=== PATIENT | female | born 1990 | race Native Hawaiian/Other Pacific Islander ===

== ENCOUNTER 2017-10-13 07:48 | Inpatient (IN) | payer BC ==
[2017-10-13 08:01] VITALS: BMI 25.0
[2017-10-13] MEDS: Lactated Ringer's 1,000 ML IV SCH ×2 (09:30→15:00)
--- NOTE | 2017-10-13 09:30 | OBHP ---
Datetime: 10/13/2017 08:15 IP Adm Impression: Term, intrauterine ; No Active Labor; Intact Membranes IP Admit Plan: Observation/Evaluation Admit Comment, IP Provider: 26 yo EGA 38.2 based on LMP of 01/18/2018 presents with vaginal ble ed. Pt reports that approximately 2 hours prior to presentation, she wiped after urinating and saw br ight red blood. After, she applied a vaginal pad, which also revealed bright red blood coin sized, mi xed with mucous. She reports recent intercouse, yesterday. She also reported some decreased movement Reports: FM; Denies: ctx, lof ros: denies: dizziness, headache, blurred vision, CP/SOB/N/V/D/C, dysuria PNC: Dr. Up; denies any complications with current pmhx: none famhx: dm soc: lives with , Denies: smoking, alcohol, illicit drugs Surg: none Allergies: venancio, seafood, cat: hives Gen; aaox3 in no acute distress cardiac: S1S2 no murmurs Lungs: cta bilaterally abdomen: gravid, nontender Gait: ambulates without difficulty 26 yo IUP 38.2 based on LMP -FHT -observe for vaginal bleed case dw OB attending Ravinder Maldonado MD PGY1 Addendum: I saw and examined patient. Patient reports noticing small amount of blood early this morning. Patient also reports occasional ly feeling contractions. Patient denied any leakage of fluids. At this time, patient reports good fet al movement. On exam, cervix 2/50/-3 with no bleeding noted. heart tracing reactive with good baseline va riability and positive accelerations. Plan to observe patient for any signs of active labor. We will reevaluate. [place] Pelvic Type - PN: Not Done Extremities - PN: Normal Abdomen - PN: Normal Back - PN: Normal Breast - PN: Normal Lungs - PN: Normal Heart - PN: Normal Thyroid - PN: Not Done Neurologic - PN: Normal HEENT - PN: Normal General - PN: Normal FHR - Baseline A Provider: 140 EGA AdmitDate IP: 38.2 Vital Signs Provider: Reviewed; Within Normal Limits IP Chief Complaint: Vaginal bleeding NICHD Variability Prov Fetus A: Moderate 6-25bpm NICHD Accel Fetus A IP Provider: [id number] FHR Category Provider Fetus A: Category I NICHD Decel Fetus A IP Provider: None Genitourinary Exam: Not Done DTRs - PN: Not Done
[2017-10-13 10:25] LABS: BASO # 0.1 K/uL (0.0-0.2); BASO % 0.5 % (0.0-2.0); EOS # 0.1 K/uL (0.0-0.7); EOS % 0.9 % (0.0-4.0); HEMOGLOBIN 11.8 g/dL (12.0-16.0); LYMPH # 2.3 K/uL (1.0-4.3); LYMPH % 24.5 % (20.0-40.0); MEAN CELL VOLUME 89.3 fl (81.0-99.0); MEAN CORPUSCULAR HEMOGLOBIN 29.8 pg (27.0-31.0); MEAN CORPUSCULAR HGB CONC 33.4 g/dL (33.0-37.0); MEAN PLATELET VOLUME 9.5 fl (7.2-11.7); MONO # 0.9 K/uL (0.0-0.8); MONO % 9.9 % (0.0-10.0); NEUT # 6.1 K/uL (1.8-7.0); NEUT % 64.2 % (50.0-75.0); NRBC % 0.1 % (0.0-0.0); RBC 3.96 Mil/uL (3.80-5.20); RED CELL DISTRIBUTION WIDTH 14.4 % (11.5-14.5); WHITE BLOOD COUNT 9.5 K/uL (4.8-10.8)
--- NOTE | 2017-10-13 12:28 | OBADHP ---
Datetime: 10/13/2017 12:25 Admit Comment, IP Provider: Patient observed at OB ED. Patient with continued contractions, but maria esther ent reports not painful as of yet. Cervix reexamined. Cervix 4 cm, 90% effaced, -2 station. Plan to a dmit patient for management of labor. Discussed plan with patient and all patient questions answered. Both maternal well-being and well-being reassuring at this time. Pelvic Type - PN: Adequate Extremities - PN: Normal Abdomen - PN: Normal Back - PN: Normal HEENT - PN: Normal General - PN: Normal FHR - Baseline A Provider: 150s Membranes, Provider: Intact Contraction Comments Provider: q3-6min IP Hx Assessment: The History has been Reviewed and is Current Vital Signs Provider: Reviewed; Within Normal Limits IP Chief Complaint: Uterine contractions NICHD Variability Prov Fetus A: Moderate 6-25bpm NICHD Accel Fetus A IP Provider: 15X15 FHR Category Provider Fetus A: Category I NICHD Decel Fetus A IP Provider: None Dilatation, Provider: 4 Effacement, Provider: 90 Station, Provider: -2 Genitourinary Exam: Normal EGA AdmitDate IP: 38.2 IP Adm Impression: Term, intrauterine ; Active labor IP Admit Plan: Admit to unit; Initiate labor protocol Datetime: 10/13/2017 08:15 Breast - PN: Normal Lungs - PN: Normal Heart - PN: Normal Thyroid - PN: Not Done Neurologic - PN: Normal DTRs - PN: Not Done
[2017-10-13] MEDS ORDERED: Lactated Ringer's 1,000 ML IV SCH ×2 (12:30→16:00)
[2017-10-13] MEDS ORDERED: Oxytocin 30 units/LR 500ML 30 U/500 ML BAG IV ONE ×2 (13:03→18:05)
--- NOTE | 2017-10-13 18:56 | OBPN ---
Datetime: 10/13/2017 18:03 IP Progress Impression: Reassuring heart rate IP Procedures: Sterile Vag Exam IP Progress Plan: Augmentation Contraction Comments Provider: q5-6min FHR - Baseline A Provider: 130s IP Progress Note Comment: No progress in 4+ hours. Discussed options with patient. Plan for Pitocin augmentation. All patient questions answered. Category 1 tracing. Vital Signs Provider: Reviewed; Within Normal Limits NICHD Accel Fetus A IP Provider: 15X15 FHR Category Provider Fetus A: Category I NICHD Variability Prov Fetus A: Moderate 6-25bpm Dilatation, Provider: 4 Effacement, Provider: 50 Station, Provider: -2 NICHD Decel Fetus A IP Provider: None Datetime: 10/13/2017 12:25 Membranes, Provider: Intact
--- NOTE | 2017-10-13 23:57 | OBPN ---
Datetime: 10/13/2017 23:54 IP Progress Impression: Normal progression of labor; Reassuring heart rate IP Procedures: Artificial ROM; Sterile Vag Exam IP Progress Plan: Continue present management Membranes, Provider: Ruptured Amniotic Fluid Color, Provider: Clear Contraction Comments Provider: q2-3min FHR - Baseline A Provider: 140s-150s IP Progress Note Comment: Fully dilated, +1 station. AROM clear fluid. Pt beginning to push. Anti cipate . Category I FHT. Vital Signs Provider: Reviewed; Within Normal Limits NICHD Accel Fetus A IP Provider: 15X15 FHR Category Provider Fetus A: Category I NICHD Variability Prov Fetus A: Moderate 6-25bpm Dilatation, Provider: 10 Effacement, Provider: 100 Station, Provider: 1 NICHD Decel Fetus A IP Provider: None
[2017-10-14] MEDS ORDERED: Lidocaine 1% Inj (20ml) ONE (00:28)
[2017-10-14] MEDS ORDERED: Benzocaine/Menthol SPRAY TOP PRN ×4 (01:17→03:00)
[2017-10-14] MEDS ORDERED: Oxycodone/Acetaminophen 5/325 mg Tab PO PRN ×6 (01:17→03:00)
--- NOTE | 2017-10-14 01:41 | OBDS ---
DELIVERY PERSONNEL Delivery Doctor: Abby Bain MD Oxide Furnace Tender: ECroweRN MATERNAL INFORMATION Delivery Anesthesia: Local Medications in Delivery: Lidocaine, Pitocin 20 units 1000 ml, Pitocin 30 units in 500 mls Estimated Blood Loss (ml): 300 Placenta Cultured: No Maternal Complications: None Provider Comments: Normal spontaneous vaginal delivery. Patient delivered viable infant female with Apgars of 9 and 9 at one and 5 minutes respectively. P lacenta delivered spontaneously. Lacerations repaired, as above. Uterus firm and appropriately hemost atic following delivery. Vidal catheter placed and will remain until day 1. Patient tolera aida delivery and repair well. No complications. Estimated blood loss 300 mL. LABOR SUMMARY EDC: 10/25/2017 00:00 No. Babies in Womb: 1 Attempted: No Labor Anesthesia: None LABOR INFORMATION Reason for Induction: Not Applicable Onset of Labor: 10/13/2017 21:57 Complete Dilatation: 10/13/2017 23:50 Oxytocin: Augmentation Group B Beta Strep: Negative Antibiotics # of Doses: N/A Antibiotics Time of Last Dose: N/A Steroids Given: None Reason Steroids Not Administered: Not Applicable MEMBRANES Membranes Rupture Method: Artificial Rupture of Membranes: 10/13/2017 23:51 Length of Rupture (hrs): 0.57 Amniotic Fluid Color: Clear Amniotic Fluid Amount: Small Amniotic Fluid Odor: Normal STAGES OF LABOR Stage 1 hrs: 1 Stage 1 min: 53 Stage 2 hrs: 0 Stage 2 min: 35 Stage 3 hrs: 0 Stage 3 min: 11 Total Time in Labor hrs: 2 Total Time in Labor min: 39 VAGINAL DELIVERY Episiotomy: None Laceration Extension: Second Degree Laceration Type: Perineal; Periurethral Laceration Repair: Yes Laceration Repair Note: Second-degree midline perineal laceration and second-degree clitoral and per iurethral laceration. Areas infiltrated with 1% lidocaine. Lacerations repaired with 2. 0 repeat with out complication. Patient tolerated repair well. Catheter in place during laceration repair. Initial Vag Sponge Count: 25 Final Vag Sponge Count: 25 Initial Vag Sharps Count: 4 Final Vag Sharps Count: 4 Sponge Count Correct: Yes Sharps Count Correct: Yes Count Comment: MD confirmed count BABY A INFORMATION Delivery Date/Time: 10/14/2017 00:25 Method of Delivery: Vaginal Born in Route : No : N/A Forceps: N/A Vacuum Extraction: N/A Shoulder Dystocia : No SHOULDER DYSTOCIA BABY A Infant Delivery Date/Time: 10/14/2017 00:25 PRESENTATION/POSITION BABY A Presentation: Cephalic Cephalic Presentation: Vertex Breech Presentation: N/A PLACENTA INFORMATION BABY A Placenta Delivery Time : 10/14/2017 00:36 Placenta Method of Delivery: Spontaneous Placenta Status: Delivered SCORES BABY A Heart Rate 1 min: >100 bpm Resp Effort 1 min: Good Cry Reflex Irritability 1 min: Cough or Sneeze or Pulls Away Muscle Tone 1 min: Active Motion Color 1 min: Body [place], Extremities Blue Resuscitation Effort 1 min: N/A SCORE 1 MIN: 9 Heart Rate 5 min: >100 bpm Resp Effort 5 min: Good Cry Reflex Irritability 5 min: Cough or Sneeze or Pulls Away Muscle Tone 5 min: Active Motion Color 5 min: Body [place], Extremities Blue Resuscitation Effort 5 min: N/A SCORE 5 MIN: 9 INFORMATION BABY A Gestational Age at Delivery: 38.3 Gestational Status: Term Outcome : Liveborn Infant Condition : Stable Sex: Female IDENTIFICATION/MEDS BABY A ID Band Number: [id number] ID Band Location: Left Leg; Left Arm WEIGHT/LENGTH BABY A Birthweight (gms): 3085 Infant Weight (lb): 6 Weight (oz): 13 CORD INFORMATION BABY A No. Cord Vessels: 3 Nuchal Cord : N/A Nuchal Cord Other: N/A True Knot: N/A Cord pH Baby Arterial: N/A Infant Cord pH Baby Venous: N/A Cord Blood Taken: Yes Banking/Donate Info: N/A Infant Suction: Mouth; Nose ASSESSMENT BABY A Complications: None Physical Findings at Delivery: Within Normal Limits Infant Respirations: Appears Normal Printing Grey Cloth Tender/ALS Called : No Transferred To: Remains with Mother
[2017-10-14] MEDS: Multivitamin With Minerals Tab PO SCH (08:50)
[2017-10-14] MEDS ORDERED: Multivitamin With Minerals Tab PO SCH ×3 (09:00)
[2017-10-14 09:21] LABS: BASO % 0.2 % (0.0-2.0); EOS % 0.1 % (0.0-4.0); HEMOGLOBIN 10.8 g/dL (12.0-16.0); LYMPH # 2.7 K/uL (1.0-4.3); LYMPH % 14.5 % (20.0-40.0); MEAN CELL VOLUME 88.6 fl (81.0-99.0); MEAN CORPUSCULAR HEMOGLOBIN 29.7 pg (27.0-31.0); MEAN CORPUSCULAR HGB CONC 33.5 g/dL (33.0-37.0); MEAN PLATELET VOLUME 8.7 fl (7.2-11.7); MONO # 1.4 K/uL (0.0-0.8); MONO % 7.9 % (0.0-10.0); NEUT # 14.2 K/uL (1.8-7.0); NEUT % 77.3 % (50.0-75.0); RBC 3.64 Mil/uL (3.80-5.20); RED CELL DISTRIBUTION WIDTH 14.3 % (11.5-14.5); WHITE BLOOD COUNT 18.3 K/uL (4.8-10.8)
--- NOTE | 2017-10-14 09:56 | OBPPN ---
Datetime: 10/14/2017 09:15 PP Pain Prov: Within normal limits PP Nausea Prov: Denies PP Flatus Prov: Yes PP BM Prov: No PP Breasts Prov: Normal PP Heart Prov: Normal PP Lungs Prov: Normal PP Abdomen/Uterus Prov: Normal PP Lochia Prov: Normal PP Vulva/Perineum Prov: Normal PP CVA Tenderness Prov: Normal PP Extremities Prov: Normal PP Progress Note Prov: She feels fine. Some soreness around vagina [place] in place Perineum - some swelling H/H 10/32 S/P Perineal/Periurethral laceration PLAN: Spoke with Dr Bain (delivered yesterday) - will keep azevedo until this afternooon ... con tinue ice packs Vital Signs Provider PP: Reviewed; Within Normal Limits
[2017-10-14] MEDS ORDERED: Benzocaine/Menthol (Cepacol) Lozenge PO PRN (10:00)
--- NOTE | 2017-10-15 08:08 | OBPPN ---
Datetime: 10/15/2017 08:04 PP Pain Prov: Within normal limits PP Nausea Prov: Denies PP Flatus Prov: Yes PP Breasts Prov: Normal PP Heart Prov: Normal PP Lungs Prov: Normal PP Abdomen/Uterus Prov: Normal PP Lochia Prov: Normal PP Vulva/Perineum Prov: Normal PP CVA Tenderness Prov: Normal PP Extremities Prov: Normal PP Progress Prov: Normal PP Comments Phys Exam Prov: Abd: Soft, NT, Bs- present UT - Firm PP Impression Prov: Normal progression PP Plan Prov: Continue present management PP Progress Note Prov: S/P , Clinically Stable. Plan: Continue care. Vital Signs Provider PP: Reviewed
[2017-10-15] MEDS: Multivitamin With Minerals Tab PO SCH (08:33)
--- NOTE | 2017-10-16 08:51 | OBPPN ---
Datetime: 10/16/2017 08:47 PP Pain Prov: Within normal limits PP Nausea Prov: Denies PP Flatus Prov: Yes PP Breasts Prov: Normal PP Heart Prov: Normal PP Lungs Prov: Normal PP Abdomen/Uterus Prov: Normal PP Lochia Prov: Normal PP Vulva/Perineum Prov: Normal PP CVA Tenderness Prov: Normal PP Extremities Prov: Normal PP Progress Prov: Normal PP Comments Phys Exam Prov: Abd: Soft, NT, BS - present UT- Firm PP Impression Prov: Normal progression PP Plan Prov: Discharge PP Progress Note Prov: S/P , POD #2 Clinically Stable. Plan: D/c Home. Vital Signs Provider PP: Reviewed
--- NOTE | 2017-10-16 08:53 | OBDCSUM ---
Datetime: 10/16/2017 08:49 Discharged to, Provider: Home Follow up at, Provider: OB Doctor Disch Instr Activity: Normal activity Disch Instr Diet: Regular Discharge Instructions, Provider: Routine instructions given Discharge Diagnosis, Provider: Term Delivered Discharge Time: 10/16/2017 08:49 Follow up in weeks, Provider: 4-6 weeks Disch Referrals: None Contraception discussed, Prov: Yes Discharge Comment, Provider: S/P Uncomplicated , Clinicaly Stable. Discharge Diagnosis Prov Other: S/P Uncomplicated , Clinicaly Stable.
[2017-10-16] MEDS: Multivitamin With Minerals Tab PO SCH (09:00)
[2017-10-16 22:36] VITALS: BP 121/70; PULSE 89; RESP 20; TEMP 98.4; O2SAT 97
== END 2017-10-16 13:20 | disposition home or self-care (01) | DRG 775 ==
LOC: H.EROB2 07:48 → H.L&D 07:53 → H.EROB2 12:21 → H.L&D 12:21 → H.OB/GYN 10-14 19:40
PROVIDERS: ADMIT Obstetrics & Gynecology; ATTEND Obstetrics & Gynecology
PROC: 10907ZC Drainage of Amniotic Fluid, Therapeutic from Products of Conception, Via Natural or Artificial Opening (ICD-10-PCS; 2017-10-13)
PROC: 4A1HXCZ Monitoring of Products of Conception, Cardiac Rate, External Approach (ICD-10-PCS; 2017-10-13)
PROC: 10E0XZZ Delivery of Products of Conception, External Approach (ICD-10-PCS; principal; 2017-10-14)
PROC: 0KQM0ZZ Repair Perineum Muscle, Open Approach (ICD-10-PCS; 2017-10-14)
DX: O36.8130 Decreased fetal movements, third trimester, not applicable or unspecified (principal); O70.1 Second degree perineal laceration during delivery; O71.82 Other specified trauma to perineum and vulva; Z37.0 Single live birth; Z3A.38 38 weeks gestation of pregnancy